=== PATIENT | female | born 1980 | race Caucasian/White ===

== ENCOUNTER 2024-12-05 15:11 | Emergency (ER) | payer BC, OTHER ==
[~2024-12-05] VITALS: Ht 167.6 cm; Wt 75.3 kg
[~2024-12-05 15:11] MED LIST: ACETAMINOPHEN-1 EAC4 PO; AMOX TR-K CLV1 EAC2 PO; BACTRIM 400-801 EACH PO; BIRTH CONTROL; CEFDINIR300 MG PO; CITALOPRAM; DICYCLOMINE HCL20 MG PO; FLUOXETINE HCL20 MG PO; IBUPROFEN IB200 MG PO; NAPROSYN500 MG PO; ONDANSETRON ODT4 MG PO; SINGULAIR10 MG; TYLENOL WITH C1 EACH PO; WELLBUTRIN SR150 MG PO; [UNRECOGNIZED DRUG - OTHER] PO
[2024-12-05] MEDS ORDERED: IOPAMIDOL 370 MG/ML 100 ML INFUS..BTL INJ ONE (15:42)
[2024-12-05] MEDS ORDERED: FAMOTIDINE 20 MG/2 ML VIAL IV ONE (15:44)
[2024-12-05] MEDS: Morphine 2mg Syringe 2 MG/ML SYR IV ONE ×2 (15:55→16:50)
[2024-12-05] MEDS: ONDANSETRON HCL INJ 2MG/ML 2ML 2 MG/ML VIAL IV STA (15:55)
[2024-12-05] MEDS: SODIUM CHLORIDE 0.9% 1000ML 1,000 ML IV ONE (15:55)
[2024-12-05] MEDS: FAMOTIDINE 20 MG/2 ML VIAL IV STA (15:55)
[2024-12-05] MEDS ORDERED: MOUNJARO15 MG/0.5 (16:00)
[2024-12-05] MEDS ORDERED: PEPCID20 MG PO (17:51)
[2024-12-05] MEDS ORDERED: ONDANSETRON ODT4 MG PO (17:52)
[2024-12-05 18:13] VITALS: PULSE 74; RESP 16; TEMP 97.9; O2SAT 100
[2024-12-05] MEDS: MAGNESIUM/ALUMINUM/SIMETHICONE 30 ML UDC PO ONE (18:15)
== END 2024-12-05 18:13 | disposition home or self-care (01) ==
LOC: MERGE 15:20 → FSED 15:20
DX: R10.10 Upper abdominal pain, unspecified (principal); K29.70 Gastritis, unspecified, without bleeding; N28.89 Other specified disorders of kidney and ureter; K76.9 Liver disease, unspecified; F41.9 Anxiety disorder, unspecified; F32.A Depression, unspecified; Z98.84 Bariatric surgery status
CPT/HCPCS: 36415; 74176; 76705; 80053; 81003; 83690; 84484; 85025; 93005; 96374; 96375; 96376; 99284; J1308; J2270; J2405; J7030; Q9967